=== PATIENT | female | born 1945 | race Caucasian/White ===

== ENCOUNTER → 2016-10-27 | Outpatient (CLI) | payer MEDICARE, OTHER ==
[~2016-10-27] MED LIST: COLACE 100MG C100 MG PO; GLUCOPHAGE1000 MG PO; IBUPROFEN600 MG PO; NORCO 5-325 TA1 EACH PO
== END ==
LOC: CT 13:30
DX: R10.2 Pelvic and perineal pain (principal); N95.0 Postmenopausal bleeding; R10.813 Right lower quadrant abdominal tenderness; N20.0 Calculus of kidney; K76.0 Fatty (change of) liver, not elsewhere classified

== ENCOUNTER → 2016-11-04 | Outpatient (CLI) | payer MEDICARE, OTHER | LOC: KOH-I 11-02 09:30 | DX: R94.5 Abnormal results of liver function studies (principal); R10.813 Right lower quadrant abdominal tenderness; K76.0 Fatty (change of) liver, not elsewhere classified | CPT/HCPCS: 76705 ==

== ENCOUNTER → 2021-04-08 | Outpatient (CLI) | payer MEDICARE | LOC: US 04-07 08:30 → MAMO 04-07 08:30 → US 04-07 10:30 | DX: R10.11 Right upper quadrant pain (principal); R10.813 Right lower quadrant abdominal tenderness; R80.9 Proteinuria, unspecified; K59.00 Constipation, unspecified; R13.10 Dysphagia, unspecified; E04.9 Nontoxic goiter, unspecified; K76.0 Fatty (change of) liver, not elsewhere classified; K82.8 Other specified diseases of gallbladder; N28.1 Cyst of kidney, acquired | CPT/HCPCS: 76536; 76700 ==

== ENCOUNTER → 2021-05-04 | Outpatient (CLI) | payer MEDICARE | LOC: NM 04-27 09:00 | DX: R10.813 Right lower quadrant abdominal tenderness (principal); R53.83 Other fatigue; M54.9 Dorsalgia, unspecified; R10.13 Epigastric pain; R13.10 Dysphagia, unspecified; R93.5 Abnormal findings on diagnostic imaging of other abdominal regions, including retroperitoneum; N20.0 Calculus of kidney | CPT/HCPCS: 74018; 78227; 81001; A9537; J2805 ==

== ENCOUNTER → 2021-08-02 | Outpatient (CLI) | payer MEDICARE | LOC: EXRD 14:57 | DX: R31.9 Hematuria, unspecified (principal); N20.0 Calculus of kidney | CPT/HCPCS: 74018 ==

== ENCOUNTER → 2021-11-30 | Outpatient (CLI) | payer MEDICARE | LOC: KOH-I 09:00 | DX: N39.0 Urinary tract infection, site not specified (principal); R33.9 Retention of urine, unspecified; N28.1 Cyst of kidney, acquired | CPT/HCPCS: 76775 ==